=== PATIENT | male | born 1995 | race Asian ===

== ENCOUNTER 2016-10-23 01:49 | Inpatient (IN) | payer OTHER ==
[~2016-10-23] VITALS: Ht 180.3 cm; Wt 72.6 kg
[2016-10-23] MEDS ORDERED: TRIM/SULFAMETH 160/800 (SEPTRA DS) TAB PO STA (02:51)
[2016-10-23] MEDS ORDERED: LIDOCAINE 1% INJ 20 ML (XYLOCAINE) VIAL INJ STA (02:51)
--- NOTE | 2016-10-23 03:37 | ED Integumentary General ---
General Chief Complaint: Skin/Wound Problems Stated Complaint: CYST Nursing Triage Note: PT C/O INGROWN HAIR NOTICED ON SUNDAY. STATES HE THINKS HE HAS A "SEBACEOUS CYST" THAT HAS GOTTEN LARGER IN SIZE, AREA RED, PAINFUL. Source: patient Exam Limitations: no limitations History of Present Illness Time seen by provider: 02:40 Initial Comments Here with area of swelling just above the penis over the pubis area. Patient reports that he thought he had an ingrown hair and noticed some swelling in the area and tried to squeeze it to pop what he believes was a small pustule. This did not work and yesterday he started noticing rapid swelling increasing to the area and encompass the area above the penis and then towards the left groin. Does have mild fever currently. Has not had anything like this before. Otherwise healthy. Timing/Duration: getting worse, other (2 days ago) Severity: moderate Location: genitalia Possible Cause: other (shaving/ingrown hair) Associated Symptoms: edema, fever Allergies and Home Medications Allergies Coded Allergies: No Known Drug Allergies (Unverified , 10/23/16) Home Medications No Active Prescriptions or Reported Meds Constitutional: see HPI, No chills, No fever Respiratory: no symptoms reported Cardiovascular: no symptoms reported Gastrointestinal: no symptoms reported, No nausea, No vomiting Genitourinary: see HPI, No dysuria, No frequency, pain (skin wound) Musculoskeletal: no symptoms reported Skin: see HPI, change in color, lesions Psychiatric/Neurological: No Symptoms Reported All Other Systems Reviewed Negative Unless Noted: Yes Past Shggmeo-Wqtkbz-Ykwrhn Hx Patient Social History Alcohol Use: Rarely Uses Recreational Drug Use: No Smoking Status: Never a Smoker 2nd Hand Smoke Exposure: No Recent Foreign Travel: No Contact w/Someone Who Travel: No Recent Infectious Disease Expo: No Recent Hopitalizations: No Immunizations Up To Date Tetanus Booster (TDap): Unknown Seasonal Allergies Seasonal Allergies: No Surgeries HX Surgeries: No Respiratory Hx Respiratory Disorders: No Cardiovascular Hx Cardiac Disorders: No Neurological Hx Neurological Disorders: No Reproductive System Hx Reproductive Disorders: No Sexually Transmitted Disease: No Genitourinary Hx Genitourinary Disorders: No Gastrointestinal Hx Gastrointestinal Disorders: No Musculoskeletal Hx Musculoskeletal Disorders: No Endocrine Hx Endocrine Disorders: No HEENT HX ENT Disorders: No Cancer Hx Cancer: No Psychosocial Hx Psychiatric Problems: No Integumentary HX Skin/Integumentary Disorder: No Blood Transfusions Hx Blood Disorders: No Reviewed Nursing Assessment Reviewed/Agree w Nursing PMH: Yes Family Medical History Significant Family History: No Pertinent Family Hx Physical Exam Vital Signs Vital Sign - Last 12Hours 10/23/16 02:11 Temp 100.0 Pulse 75 Resp 19 B/P (MAP) 136/89 Pulse Ox 97 O2 Delivery Room Air Capillary Refill : Less Than 3 Seconds General Appearance: WD/WN, no apparent distress Neck: full range of motion, supple Cardiovascular: regular rate, rhythm, no murmur Respiratory: lungs clear, normal breath sounds Gastrointestinal: non tender, soft Skin: warm/dry Skin Problem Location: other (pubic area) Skin Problem Character: abscess, erythema, other (2 x 6 cm area of induration with an area centrally that has pustule draining purulent drainage.) Lymphatic: No inguinal node tender (R), inguinal node tender (L) I&D : Blade Size: 11 I & D Procedure: betadine prep Progress Abscessed area and pubic area midline symphysis pubis at base of penis prepped with Betadine and anesthetized with 6 mL of 1 percent lidocaine. 0.5 cm incision over area of concern made and small amount of pus obtained. Remainder of the 2 x 6 cm area is apparently all induration without purulence. Covered with antibiotic ointment and dressing. Progress/Results/Core Measures Results/Orders Lab Results Laboratory Tests Test 10/23/16 03:41 Range/Units White Blood Count 15.6 H 4.3-11.0 10^3/uL Red Blood Count 4.80 4.35-5.85 10^6/uL Hemoglobin 14.7 13.3-17.7 G/DL Hematocrit 42 40-54 % Mean Corpuscular Volume 88 80-99 FL Mean Corpuscular Hemoglobin 31 25-34 PG Mean Corpuscular Hemoglobin Concent 35 32-36 G/DL Red Cell Distribution Width 11.6 10.0-14.5 % Platelet Count 337 130-400 10^3/uL Mean Platelet Volume 8.8 7.4-10.4 FL Neutrophils (%) (Auto) 71 42-75 % Lymphocytes (%) (Auto) 19 12-44 % Monocytes (%) (Auto) 8 0-12 % Eosinophils (%) (Auto) 1 0-10 % Basophils (%) (Auto) 1 0-10 % Neutrophils # (Auto) 11.1 H 1.8-7.8 X 10^3 Lymphocytes # (Auto) 3.0 1.0-4.0 X 10^3 Monocytes # (Auto) 1.2 H 0.0-1.0 X 10^3 Eosinophils # (Auto) 0.2 0.0-0.3 10^3/uL Basophils # (Auto) 0.1 0.0-0.1 10^3/uL Sodium Level 142 135-145 MMOL/L Potassium Level 3.9 3.6-5.0 MMOL/L Chloride Level 106 98-107 MMOL/L Carbon Dioxide Level 26 21-32 MMOL/L Anion Gap 10 5-14 MMOL/L Blood Urea Nitrogen 7 7-18 MG/DL Creatinine 0.97 0.60-1.30 MG/DL Estimat Glomerular Filtration Rate > 60 BUN/Creatinine Ratio 7 Glucose Level 100 70-105 MG/DL Lactic Acid Level 0.93 0.50-2.00 MMOL/L Calcium Level 9.2 8.5-10.1 MG/DL Total Bilirubin 0.7 0.1-1.0 MG/DL Aspartate Amino Transf (AST/SGOT) 13 5-34 U/L Alanine Aminotransferase (ALT/SGPT) 13 0-55 U/L Alkaline Phosphatase 49 40-136 U/L C-Reactive Protein High Sensitivity 3.12 H 0.00-0.50 MG/DL Total Protein 6.2 L 6.4-8.2 G/DL Albumin 3.8 3.2-4.5 G/DL My Orders Orders - DARNELL JAIMES MD Lidocaine 1% Injection (Xylocaine 1% Inj (10/23/16 02:51) Wound Culture (10/23/16 02:51) Sulfamethoxazole/Trimet Ds Tab (Bactrim (10/23/16 02:51) Cbc With Automated Diff (10/23/16 03:28) Comprehensive Metabolic Panel (10/23/16 03:28) Hs C Reactive Protein (10/23/16 03:28) Blood Culture (10/23/16 03:28) Saline Lock/Iv-Start (10/23/16 03:28) Lactic Acid Analyzer (10/23/16 03:28) Ceftriaxone Injection (Rocephin Injectio (10/23/16 04:00) Ct Pelvis W (10/23/16 04:44) Ibuprofen Tablet (Motrin Tablet) (10/23/16 04:44) Ns Iv 1000 Ml (Sodium Chloride 0.9%) (10/23/16 04:44) Vancomycin Injection (Vancomycin Injecti (10/23/16 04:45) Medications Given in ED Current Medications Medications Dose Ordered Sig/Amador Route Start Time Stop Time Status Last Admin Dose Admin Ceftriaxone Sodium 1000 mg/ Sodium Chloride 50 ml @ 100 mls/hr ONCE ONCE IV 10/23/16 04:00 10/23/16 04:29 DC 10/23/16 04:01 100 MLS/HR Vital Signs/I&O Vital Sign - Last 12Hours 10/23/16 02:11 Temp 100.0 Pulse 75 Resp 19 B/P (MAP) 136/89 Pulse Ox 97 O2 Delivery Room Air Blood Pressure Mean: 105 Progress Note : Progress Note Seen and evaluated. I&D attempted. Culture obtained. Considered Bactrim by mouth but held due to patient appears to have some thickening of induration so IV and labs will be obtained to evaluate for systemic effects. Blood cultures and lactic acid ordered. Rocephin 1 g IV after blood cultures. Patient does have mild fever. 0439: I did discuss the case with Dr. Jimenez. Patient does have elevated white count and there is concerns due to the quick expansion of area of concern. He would like CT of the pelvis which was ordered. We will initiate vancomycin afterwards. Normal saline 1 L bolus. Patient's temperature is now 100.2. Ibuprofen 800 mg by mouth given. To be admitted. Dr. Jimenez is requesting medicine consult which will be placed. He will take patient primary. Admit, inpatient status. Departure Communication Time/Spoke to Admitting Phy: 04:39 Impression Impression: Primary Impression: Groin abscess Additional Impression: Cellulitis Qualified Codes: L03.818 - Cellulitis of other sites Disposition: ADMITTED INPATIENT Condition: Stable Decision to Admit Reason: Admit from ER (General) Decision to Admit/Date: October 23, 2016 Time/Decision to Admit Time: 04:39 Departure-Patient Inst. Referrals: NO,LOCAL PHYSICIAN (PCP/Family) Primary Care Physician Scripts No Active Prescriptions or Reported Meds DARNELL JAIMES MD October 23, 2016 03:37
[2016-10-23 04:00] LABS: BASOPHILS # (AUTO) 0.1 10^3/uL (0.0-0.1); BASOPHILS % (AUTO) 1 % (0-10); EOSINOPHILS # (AUTO) 0.2 10^3/uL (0.0-0.3); EOSINOPHILS % (AUTO) 1 % (0-10); LYMPHOCYTES % (AUTO) 19 % (12-44); MEAN CORPUSCULAR HEMOGLOBIN 31 PG (25-34); MEAN CORPUSCULAR HGB CONC 35 G/DL (32-36); MEAN CORPUSCULAR VOLUME 88 FL (80-99); MEAN PLATELET VOLUME 8.8 FL (7.4-10.4); MONOCYTES # (AUTO) 1.2 X 10^3 (0.0-1.0); MONOCYTES % (AUTO) 8 % (0-12); NEUTROPHILS # (AUTO) 11.1 X 10^3 (1.8-7.8); NEUTROPHILS % (AUTO) 71 % (42-75); PLATELET COUNT 337 10^3/uL (130-400); RED CELL DISTRIBUTION WIDTH 11.6 % (10.0-14.5); WHITE BLOOD COUNT 15.6 10^3/uL (4.3-11.0)
[2016-10-23] MEDS ORDERED: cefTRIAXone INJECTION 1,000 MG in NS (IVPB) 50 ML IV ONE (04:00)
[2016-10-23 04:20] LABS: ALANINE AMINOTRANSFERASE 13 U/L (0-55); ALBUMIN 3.8 G/DL (3.2-4.5); ANION GAP 10 MMOL/L (5-14); ASPARTATE AMINO TRANSFERASE 13 U/L (5-34); BILIRUBIN,TOTAL 0.7 MG/DL (0.1-1.0); BLOOD UREA NITROGEN 7 MG/DL (7-18); BUN/CREATININE RATIO 7; CALCIUM 9.2 MG/DL (8.5-10.1); CARBON DIOXIDE 26 MMOL/L (21-32); CHLORIDE 106 MMOL/L (98-107); CREATININE SERUM 0.97 MG/DL (0.60-1.30); GFR ESTIMATED > 60; GLUCOSE 100 MG/DL (70-105); POTASSIUM 3.9 MMOL/L (3.6-5.0); SODIUM 142 MMOL/L (135-145); TOTAL PROTEIN 6.2 G/DL (6.4-8.2); hs C REACTIVE PROTEIN 3.12 MG/DL (0.00-0.50)
[2016-10-23] MEDS ORDERED: NS IV 1000 ML 1,000 ML IV ONE (04:44)
[2016-10-23] MEDS ORDERED: IBUPROFEN 800 MG (MOTRIN) TAB PO STA (04:44)
[2016-10-23] MEDS ORDERED: VANCOMYCIN INJECTION 1,000 MG in NS (IVPB) 250 ML IV ONE (04:45)
[2016-10-23] MEDS ORDERED: CATHETER FLUSH 10 ML SYR IV PRN (07:30)
[2016-10-23] MEDS ORDERED: ONDANSETRON 4 MG/2 ML (SDV) Z0FRAN IV PRN (07:45)
--- NOTE | 2016-10-23 08:07 | Diagnostic Imaging Report ---
PROCEDURE: CT pelvis with contrast. TECHNIQUE: Oral and intravenous contrast were administered with pelvic CT performed. INDICATION: Cyst in the left groin, testicular region. FINDINGS: Small curvilinear, somewhat thickwalled rim-enhancing areas noted within the superficial subcutaneous fat of left superior lateral base of the penis. Some rim enhancement is noted may reflective of abscess. This appears to be likely just anterior to and separate from the left spermatic cord. This area measures approximately 4 cm in length by 1 cm in diameter. There is additional [id number] surrounding superficial subcutaneous fat stranding. Mildly prominent bilateral inguinal lymph nodes. The intraperitoneal structures including urinary bladder and prostate gland appearing unremarkable. Portion of the appendix are visualized and unremarkable. IMPRESSION: 1. Findings suspect for probable abscess within the superficial subcutaneous fat at the superolateral base of the penis to left of midline. Inflammatory changes extends inferiorly along the scrotal wall. Dictated by: Dictated on workstation # [id number]
[2016-10-23] MEDS: NS IV 1000 ML 1,000 ML IV SCH ×3 (08:27→17:58)
--- NOTE | 2016-10-23 09:07 | Consultation-Hospitalist ---
HPI History of Present Illness: HPI/Chief Complaint 21 yo male began having a folliculitis after shaving around his groin approximately 4 -5 days ago. It has progressed to an area of painful swelling and induration on the left side at the base of the penis. He has an elevated WBC and fever- this was attempted to be I and D'ed in the ER . Pt is admitted for further IV antibiotics and possible surgical exploration. He denies having any other medical problems or needs at this time. Source: patient Exam Limitations: no limitations Date Seen 10/23/16 Attending Physician Jc Jimenez DO PCP No,Local Physician Referring Physician Barbara Date of Admission October 23, 2016 at 5:30 am Home Medications & Allergies Home Medications Reviewed patient Home Medication Reconciliation Form Allergies Allergies Coded Allergies No Known Drug Allergies (Unverified10/23/16) Past Unmzxqf-Gwrhum-Fphctg Hx Patient Social History Marrital Status: single Employed/Student: unemployed Alcohol Use: Rarely Uses Recreational Drug Use: No Smoking Status: Never a Smoker 2nd Hand Smoke Exposure: No Recent Foreign Travel: No Contact w/other who traveled: No Recent Hopitalizations: No Recent Infectious Disease Expo: No Immunizations Up To Date Tetanus Booster (TDap): Unknown Seasonal Allergies Seasonal Allergies: No Surgeries HX Surgeries: No Respiratory Hx Respiratory Disorders: No Cardiovascular Hx Cardiovascular Disorders: No Neurological Hx Neurological Disorders: No Reproductive System Hx Reproductive Disorders: No Sexually Transmitted Disease: No Genitourinary Hx Genitourinary Disorders: No Gastrointestinal Hx Gastrointestinal Disorders: No Musculoskeletal Hx Musculoskeletal Disorders: No Endocrine Hx Endocrine Disorders: No HEENT HX ENT Disorders: No Cancer Hx Cancer: No Psychosocial Hx Psychiatric Problems: No Integumentary HX Skin/Integumentary Disorder: No Blood Transfusions Hx Blood Disorders: No Reviewed Nursing Assessment Reviewed/Agree w Nursing PMH: Yes Family Medical History Significant Family History: No Pertinent Family Hx Review of Systems Constitutional: see HPI Genitourinary: pain Physical Exam Physical Exam Vital Signs Vital Sign - Last 12Hours 10/23/16 02:11 Temp 100.0 Pulse 75 Resp 19 B/P (MAP) 136/89 Pulse Ox 97 O2 Delivery Room Air Capillary Refill : Less Than 3 Seconds General Appearance: No Apparent Distress, WD/WN HEENT: Normal ENT Inspection Neck: Normal Inspection, Non Tender, Supple Respiratory: Lungs Clear, Normal Breath Sounds, No Accessory Muscle Use, No Respiratory Distress Cardiovascular: Regular Rate, Rhythm, No Gallop, No Murmur Gastrointestinal: No Organomegaly, Non Tender, Soft Rectal: Deferred Genital/Rectal: Tenderness, Other (2-3 cm indurated lesion at base of penis on left side) Results Results/Procedures Lab Laboratory Tests 10/23/16 03:41 Assessment/Plan Admission Diagnosis 1. Abscess secondary to folliculitis- Strep or staph most likely organism- started on Vanc and Rocephin- no further problems at this time - will follow with you LISETTE BAUMAN MD October 23, 2016 9:07 am
--- NOTE | 2016-10-23 09:47 | History & Physical-Surgical ---
History of Present Illness History of Present Illness Reason for visit/HPI Patient reports that about 3 days ago, he noticed a cyst to his pubic area, above his penis.Patient has reportedly shaved his pubic hair a few days prior to noticing the cyst. Patient reports that he tried to pop it but there was no drainage. Patient states that over the next 2 days, that became red, inflamed and started hurting. He also reports that the redness going into his left groin. Patient states that it was getting worse and he decided to come to the ER. The ED physician tried to I&D the cyst but with minimal result. Patient was admitted for Antibiotics and further evaluation. Date of Admission October 23, 2016 at 05:30 I consulted on this patient on 10/23/16 09:41 Attending Physician Winnie Jimenez DO Admitting Physician No,Local Physician Consult Allergies and Home Medications Allergies Coded Allergies: No Known Drug Allergies (Unverified , 10/23/16) Home Medications No Active Prescriptions or Reported Meds Past Qcdjlrj-Lkfzyg-Lklfeq Hx Patient Social History Alcohol Use: Rarely Uses Recreational Drug Use: No Smoking Status: Never a Smoker 2nd Hand Smoke Exposure: No Recent Foreign Travel: No Contact w/Someone Who Travel: No Recent Infectious Disease Expo: No Recent Hopitalizations: No Immunizations Up To Date Tetanus Booster (TDap): Unknown Seasonal Allergies Seasonal Allergies: No Surgeries HX Surgeries: No Respiratory Hx Respiratory Disorders: No Cardiovascular Hx Cardiac Disorders: No Neurological Hx Neurological Disorders: No Reproductive System Hx Reproductive Disorders: No Sexually Transmitted Disease: No Genitourinary Hx Genitourinary Disorders: No Gastrointestinal Hx Gastrointestinal Disorders: No Musculoskeletal Hx Musculoskeletal Disorders: No Endocrine Hx Endocrine Disorders: No HEENT HX ENT Disorders: No Cancer Hx Cancer: No Psychosocial Hx Psychiatric Problems: No Integumentary HX Skin/Integumentary Disorder: No Blood Transfusions Hx Blood Disorders: No Reviewed Nursing Assessment Reviewed/Agree w Nursing PMH: Yes Family Medical History Significant Family History: No Pertinent Family Hx Constitutional: fever (Low grade fever 100.2 ) EENTM: no symptoms reported Respiratory: no symptoms reported Cardiovascular: no symptoms reported Gastrointestinal: no symptoms reported Genitourinary: see HPI Musculoskeletal: no symptoms reported Skin: change in color, other (redness to the pubic area above his penis. ) Physical Exam Vital Signs Vital Sign - Last 12Hours 10/23/16 02:11 Temp 100.0 Pulse 75 Resp 19 B/P (MAP) 136/89 Pulse Ox 97 O2 Delivery Room Air Capillary Refill : Less Than 3 Seconds General Appearance: No Apparent Distress, WD/WN HEENT: PERRL/EOMI Neck: Full Range of Motion Respiratory: Chest Non Tender, No Accessory Muscle Use, No Respiratory Distress Cardiovascular: Regular Rate, Rhythm Gastrointestinal: Non Tender, Soft Genital/Rectal: Tenderness (pubic area above the penis. Noted redness that extends to his left groin with induration. ) Extremity: Non Tender, No Calf Tenderness Neurologic/Psychiatric: Alert, Oriented x3, No Motor/Sensory Deficits Skin: Normal Color, Other (Redness noted to rhe pubic area with induration. No drainage noted at this time from l&D) Data Review Labs Laboratory Tests 10/23/16 03:41: White Blood Count 15.6H, Red Blood Count 4.80, Hemoglobin 14.7, Hematocrit 42, Mean Corpuscular Volume 88, Mean Corpuscular Hemoglobin 31, Mean Corpuscular Hemoglobin Concent 35, Red Cell Distribution Width 11.6, Platelet Count 337, Mean Platelet Volume 8.8, Neutrophils (%) (Auto) 71, Lymphocytes (%) (Auto) 19, Monocytes (%) (Auto) 8, Eosinophils (%) (Auto) 1, Basophils (%) (Auto) 1, Neutrophils # (Auto) 11.1H, Lymphocytes # (Auto) 3.0, Monocytes # (Auto) 1.2H, Eosinophils # (Auto) 0.2, Basophils # (Auto) 0.1, Sodium Level 142, Potassium Level 3.9, Chloride Level 106, Carbon Dioxide Level 26, Anion Gap 10, Blood Urea Nitrogen 7, Creatinine 0.97, Estimat Glomerular Filtration Rate > 60, BUN/ Creatinine Ratio 7, Glucose Level 100, Lactic Acid Level 0.93, Calcium Level 9.2 , Total Bilirubin 0.7, Aspartate Amino Transf (AST/SGOT) 13, Alanine Aminotransferase (ALT/SGPT) 13, Alkaline Phosphatase 49, C-Reactive Protein High Sensitivity 3.12H, Total Protein 6.2L, Albumin 3.8 Microbiology 10/23/16 Gram Stain - Final, Resulted 10/23/16 Wound Culture - Preliminary, Resulted Staphylococcus Aureus Assessment/Plan Assessment/Plan Assessment/Plan Abscess secondary to folliculitis- Cellulitis Patient is currently on vancomycin and Rocephin. We will continue to evaluate and monitor the patient. Barbara- Patient 3-4 days of swelling at base of penis and left side scrotum. Had I and D in ED with small amount of purulent material. Has had fever and discomfort to the area. Patient had CT scan demonstrating changes of abscess and b/l reactive lymph nodes. Patient with wbc approximately 15 K Patient states he recently clipped the area. Denies risks for std's. General no acute distress heart s1s2 lungs clear abdomen soft genitalia- base of penis and towards left scrotum erythema and swelling small opening from previous i and d. there feels to be slight fluctuance more towards scrotum portion. tender to touch. some purulent material evacuated from previous incision. normal mood affect alert and oriented abscess base of penis and left side scrotum cellulitis discussed still areas of fluctuance and would benefit from i and d also reviewed and discussed CT findings patient understands risk and benefits of further incision and drainage and wishes to proceed. continue abx wound care irrigate and pack c iodoform gauze all questions answered. consent signed for procedure. JESSEE JESUS APRN October 23, 2016 09:47 WINNIE JIMENEZ DO October 23, 2016 17:33
[2016-10-23] MEDS ORDERED: LIDOCAINE 1% INJ 20 ML (XYLOCAINE) VIAL ONE (10:18)
[2016-10-23] MEDS: fentaNYL INJECTION 100 MCG/2 ML AMP IV PRN (11:41)
[2016-10-23 12:00] VITALS: BP 113/61
[2016-10-23] MEDS: KETOROLAC 30 MG/ML VIAL IV PRN (12:45)
[2016-10-23] MEDS: VANCOMYCIN 1 GM/NS 250 ML IVPB IV SCH ×4 (14:02→21:09)
[2016-10-23] MEDS ORDERED: ACETAMINOPHEN 500 MG TAB (TYLENOL) PO PRN (18:15)
[2016-10-23] MEDS: ACETAMINOPHEN 325 MG TABLET/CAPLET (TYLENOL) PO PRN (18:44)
[2016-10-24 00:21] VITALS: BP 120/65
[2016-10-24] MEDS: NS IV 1000 ML 1,000 ML IV SCH ×2 (03:11→13:46)
[2016-10-24] MEDS: ACETAMINOPHEN 325 MG TABLET/CAPLET (TYLENOL) PO PRN (03:11)
[2016-10-24 04:00] VITALS: BP 120/60
--- NOTE | 2016-10-24 04:59 | OPERATIVE REPORT ---
DATE OF SERVICE: 10/23/2016 PREOPERATIVE DIAGNOSIS: Abscess, base of the penis and left scrotum. POSTOPERATIVE DIAGNOSIS: Abscess, base of the penis and left scrotum. PROCEDURES: Incision and drainage of abscess, base of penis, on the left side of the scrotum. SURGEON: Winnie Jimenez MD ANESTHESIA: 3 mL of 1% lidocaine. ESTIMATED BLOOD LOSS: Minimal. COMPLICATIONS: None. INDICATIONS: The patient is a 21-year-old male with an abscess to the base of his penis and life side of the scrotum. He had previous incision and drainage with a small opening, but still has further fluctuance and felt to need further incision and drainage. He understands the risks and benefits of procedures and wished to proceed with procedure. Consent was signed and in the chart. PROCEDURE: The patient was prepped and draped in sterile fashion. Timeout was performed. Local anesthetic was infiltrated into the area. Using 11 blade scalpel the incision was made over the area of fluctuance. Purulent material erupted in a small amount. There is still a lot of indurated area present. The wound was then irrigated with copious amounts of irrigation. It was then packed with 0.25 inch iodoform gauze. The area was then washed and dried, sterile bandage was applied. The patient tolerated the procedure well without any complications. After incision was made, culture was obtained. The patient was instructed that he may need further incision if it continues to worsen or even further debridement. He understands. The patient continue on antibiotics. Job ID: [id number] DocumentID: [id number] Dictated Date: 10/23/2016 17:34:39 Roll Out Manager Date: 10/24/2016 04:58:16 Dictated By: WINNIE JIMENEZ DO
[2016-10-24] MEDS ORDERED: TROUGH ORDER-PHARMACY XX SCH (05:00)
[2016-10-24 05:29] LABS: BASOPHILS # (AUTO) 0.1 10^3/uL (0.0-0.1); BASOPHILS % (AUTO) 0 % (0-10); EOSINOPHILS # (AUTO) 0.4 10^3/uL (0.0-0.3); EOSINOPHILS % (AUTO) 2 % (0-10); LYMPHOCYTES # (AUTO) 2.7 X 10^3 (1.0-4.0); LYMPHOCYTES % (AUTO) 17 % (12-44); MEAN CORPUSCULAR HEMOGLOBIN 30 PG (25-34); MEAN CORPUSCULAR HGB CONC 34 G/DL (32-36); MEAN CORPUSCULAR VOLUME 89 FL (80-99); MONOCYTES # (AUTO) 1.2 X 10^3 (0.0-1.0); MONOCYTES % (AUTO) 8 % (0-12); NEUTROPHILS # (AUTO) 11.1 X 10^3 (1.8-7.8); NEUTROPHILS % (AUTO) 72 % (42-75); PLATELET COUNT 266 10^3/uL (130-400); RED BLOOD COUNT 4.25 10^6/uL (4.35-5.85); RED CELL DISTRIBUTION WIDTH 11.5 % (10.0-14.5); WHITE BLOOD COUNT 15.4 10^3/uL (4.3-11.0)
[2016-10-24 05:58] LABS: ALANINE AMINOTRANSFERASE 11 U/L (0-55); ALBUMIN 3.1 G/DL (3.2-4.5); ANION GAP 7 MMOL/L (5-14); ASPARTATE AMINO TRANSFERASE 11 U/L (5-34); BILIRUBIN,TOTAL 0.4 MG/DL (0.1-1.0); BLOOD UREA NITROGEN 9 MG/DL (7-18); BUN/CREATININE RATIO 11; CALCIUM 8.3 MG/DL (8.5-10.1); CARBON DIOXIDE 22 MMOL/L (21-32); CHLORIDE 109 MMOL/L (98-107); CREATININE SERUM 0.81 MG/DL (0.60-1.30); GFR ESTIMATED > 60; GLUCOSE 103 MG/DL (70-105); SODIUM 138 MMOL/L (135-145); TOTAL PROTEIN 5.1 G/DL (6.4-8.2)
[2016-10-24] MEDS: VANCOMYCIN 1 GM/NS 250 ML IVPB IV SCH ×2 (06:26)
[2016-10-24 08:00] VITALS: BP 129/67
[2016-10-24] MEDS ORDERED: VANCOMYCIN 500 MG/NS 100 ML IVPB IV NR ×2 (08:29)
[2016-10-24] MEDS ORDERED: cefTRIAXone 1 GM/NS 50 ML IVPB IV SCH ×2 (09:00)
[2016-10-24] MEDS: fentaNYL INJECTION 100 MCG/2 ML AMP IV PRN (09:26)
--- NOTE | 2016-10-24 10:33 | Progress Note ---
Subjective Subjective/Events-last exam Patient resting in bed. Alert and oriented. Patient still has area of induration superior to his penis. Redness and swelling noted to penis and scrotum. Objective Exam Vital Signs Date Time Temp Pulse Resp B/P (MAP) Pulse Ox O2 Delivery O2 Flow Rate FiO2 10/24/16 08:00 97.7 70 20 129/67 97 Room Air 10/24/16 04:00 98.2 69 16 120/60 96 Room Air 10/24/16 00:21 99.0 66 16 120/65 99 Room Air 10/23/16 18:44 99.7 10/23/16 12:00 98.2 52 20 113/61 98 Room Air I & O 10/24/16 07:00 Intake Total 3760 ml Balance 3760 ml Capillary Refill : Less Than 3 Seconds General Appearance: No Apparent Distress, WD/WN HEENT: PERRL/EOMI Neck: Full Range of Motion Respiratory: Chest Non Tender, No Accessory Muscle Use, No Respiratory Distress Cardiovascular: Regular Rate, Rhythm Gastrointestinal: non tender, soft Extremity: Non Tender, No Calf Tenderness Neurologic/Psychiatric: Alert, Oriented x3, No Motor/Sensory Deficits Skin: Normal Color, Other (Redness noted to the pubic area with induration. yellow puslike drainage from I&D done by Dr. Jimenez. ) Results Lab Laboratory Tests 10/24/16 05:20: White Blood Count 15.4H, Red Blood Count 4.25L, Hemoglobin 12.9L, Hematocrit 38L , Mean Corpuscular Volume 89, Mean Corpuscular Hemoglobin 30, Mean Corpuscular Hemoglobin Concent 34, Red Cell Distribution Width 11.5, Platelet Count 266, Mean Platelet Volume 9.0, Neutrophils (%) (Auto) 72, Lymphocytes (%) (Auto) 17, Monocytes (%) (Auto) 8, Eosinophils (%) (Auto) 2, Basophils (%) (Auto) 0, Neutrophils # (Auto) 11.1H, Lymphocytes # (Auto) 2.7, Monocytes # (Auto) 1.2H, Eosinophils # (Auto) 0.4H, Basophils # (Auto) 0.1, Sodium Level 138, Potassium Level 4.0, Chloride Level 109H, Carbon Dioxide Level 22, Anion Gap 7, Blood Urea Nitrogen 9, Creatinine 0.81, Estimat Glomerular Filtration Rate > 60, BUN/ Creatinine Ratio 11, Glucose Level 103, Calcium Level 8.3L, Total Bilirubin 0.4 , Aspartate Amino Transf (AST/SGOT) 11, Alanine Aminotransferase (ALT/SGPT) 11, Alkaline Phosphatase 46, Total Protein 5.1L, Albumin 3.1L, Vancomycin Level Trough 7.8L Microbiology 10/23/16 Gram Stain - Final, Resulted 10/23/16 Wound Culture - Preliminary, Resulted Staphylococcus Aureus Assessment/Plan Assessment/Plan Assessment/Plan SP I&D to Pubic area. Abscess secondary to folliculitis- Cellulitis Patient is currently on vancomycin and Rocephin. Drainage for I &D positive for MRSA. WBC is still elevated. NPO at midnight. Possible I&D in OR tomorrow if induration is not better. Daily packing and dressing of wound. Barbara- Patient penis and scrotum unchanged. Slight purulent drainage. Packing removed, irrigated and packed. Patient wbc still elevated. In no acute disterss, heart reg lungs nonlabored, Indurated area still present at base of penis and scrotum, slight purulent material present. Culture MRSA. s/p i and d will make NPO after midnight incase needs further I and D and debridement. Continue ABX Warm compresses. Assessment as above Clinical Quality Measures DVT/VTE Risk/Contraindication: Risk Factor Score Per Nursin RFS Level Per Nursing on Admit: 1=Low/No VTE PPX JESSEE JESUS DEVELOPMENT ENGINEER October 24, 2016 10:33 WINNIE JIMENEZ DO October 24, 2016 15:43
[2016-10-24 12:30] VITALS: BP 127/63
[2016-10-24] MEDS: VANCOMYCIN INJECTION 1,500 MG in NS IV 500 ML 500 ML IV SCH ×2 (13:46→21:27)
[2016-10-24 16:00] VITALS: BP 119/73
[2016-10-24 20:00] VITALS: BP 124/79
[2016-10-25] VITALS: BP 138/63
[2016-10-25] MEDS: NS IV 1000 ML 1,000 ML IV SCH ×3 (02:04→16:57)
[2016-10-25] MEDS ORDERED: TROUGH ORDER-PHARMACY XX NR (05:00)
[2016-10-25] MEDS: VANCOMYCIN INJECTION 1,500 MG in NS IV 500 ML 500 ML IV SCH ×3 (06:44→21:58)
[2016-10-25 07:43] LABS: BASOPHILS # (AUTO) 0.1 10^3/uL (0.0-0.1); BASOPHILS % (AUTO) 0 % (0-10); EOSINOPHILS # (AUTO) 0.3 10^3/uL (0.0-0.3); EOSINOPHILS % (AUTO) 3 % (0-10); LYMPHOCYTES # (AUTO) 3.2 X 10^3 (1.0-4.0); LYMPHOCYTES % (AUTO) 29 % (12-44); MEAN CORPUSCULAR HEMOGLOBIN 30 PG (25-34); MEAN CORPUSCULAR HGB CONC 34 G/DL (32-36); MEAN CORPUSCULAR VOLUME 89 FL (80-99); MEAN PLATELET VOLUME 9.3 FL (7.4-10.4); MONOCYTES # (AUTO) 0.8 X 10^3 (0.0-1.0); MONOCYTES % (AUTO) 7 % (0-12); NEUTROPHILS # (AUTO) 6.7 X 10^3 (1.8-7.8); NEUTROPHILS % (AUTO) 60 % (42-75); PLATELET COUNT 289 10^3/uL (130-400); RED BLOOD COUNT 4.11 10^6/uL (4.35-5.85); RED CELL DISTRIBUTION WIDTH 11.3 % (10.0-14.5); WHITE BLOOD COUNT 11.2 10^3/uL (4.3-11.0)
[2016-10-25] MEDS ORDERED: LACTATED RINGERS 1,000 ML IV PRN (07:55)
[2016-10-25 08:00] VITALS: BP 112/64
--- NOTE | 2016-10-25 08:14 | Progress Note ---
Subjective Subjective/Events-last exam States about the same. No new complaints. Denies n/v fever sweats chills shortness of breath or chest pain. Objective Exam Vital Signs Date Time Temp Pulse Resp B/P (MAP) Pulse Ox O2 Delivery O2 Flow Rate FiO2 10/25/16 00:00 99.2 59 18 138/63 99 Room Air 10/24/16 20:00 97.4 63 18 124/79 97 Room Air 10/24/16 16:00 97.6 59 20 119/73 98 Room Air 10/24/16 12:30 98.4 58 16 127/63 99 Room Air I & O 10/25/16 07:00 Intake Total 6040 ml Output Total 4350 ml Balance 1690 ml Capillary Refill : Less Than 3 Seconds General Appearance: No Apparent Distress, WD/WN HEENT: PERRL/EOMI Neck: Full Range of Motion Respiratory: Chest Non Tender, No Accessory Muscle Use, No Respiratory Distress Cardiovascular: Regular Rate, Rhythm Gastrointestinal: non tender, soft Extremity: Non Tender, No Calf Tenderness Neurologic/Psychiatric: Alert, Oriented x3, No Motor/Sensory Deficits Skin: Normal Color, Other (Redness noted to the pubic area with less induration now more fluctuance. yellow puslike drainage ) Results Lab Laboratory Tests 10/25/16 05:48: White Blood Count 11.2H, Red Blood Count 4.11L, Hemoglobin 12.4L, Hematocrit 37L , Mean Corpuscular Volume 89, Mean Corpuscular Hemoglobin 30, Mean Corpuscular Hemoglobin Concent 34, Red Cell Distribution Width 11.3, Platelet Count 289, Mean Platelet Volume 9.3, Neutrophils (%) (Auto) 60, Lymphocytes (%) (Auto) 29, Monocytes (%) (Auto) 7, Eosinophils (%) (Auto) 3, Basophils (%) (Auto) 0, Neutrophils # (Auto) 6.7, Lymphocytes # (Auto) 3.2, Monocytes # (Auto) 0.8, Eosinophils # (Auto) 0.3, Basophils # (Auto) 0.1, Vancomycin Level Trough 15.0 Microbiology 10/23/16 Blood Culture - Preliminary, Resulted No growth 10/23/16 Gram Stain - Final, Resulted 10/23/16 Wound Culture - Preliminary, Resulted Staphylococcus Aureus Assessment/Plan Assessment/Plan Assessment/Plan SP I&D to Pubic area. Abscess secondary to folliculitis- Cellulitis MRSA Patient with more fluctuant area discussed need for further i and d possible debridement he understands he's npo WBC slightly decreased to or for further intervention. Clinical Quality Measures DVT/VTE Risk/Contraindication: Risk Factor Score Per Nursin RFS Level Per Nursing on Admit: 1=Low/No VTE PPX WINNIE FLAHERTY DO October 25, 2016 08:14
[2016-10-25] MEDS ORDERED: SEVOFLURANE (ULTANE) 15 ML INHAL SOLN ONE ×2 (08:25→09:16)
[2016-10-25] MEDS ORDERED: proPOfol 200 MG/20 ML (DIPRIVAN) VIAL IV ONE ×2 (08:25→09:10)
[2016-10-25] MEDS ORDERED: MIDAZOLAM 2 MG/2 ML (VERSED) VIAL ONE (08:25)
[2016-10-25] MEDS ORDERED: LACTATED RINGERS 1,000 ML IV ONE (08:25)
[2016-10-25] MEDS ORDERED: LIDOCAINE PF 2% 10 ML (XYLOCAINE) AMP ONE (08:25)
[2016-10-25] MEDS ORDERED: fentaNYL INJECTION 100 MCG/2 ML AMP ONE ×2 (08:25→09:09)
[2016-10-25] MEDS ORDERED: ONDANSETRON 4 MG/2 ML (SDV) Z0FRAN ONE (08:30)
[2016-10-25] MEDS ORDERED: morphine INJ 10 MG/ML 1ML (SYR OR VIAL) ONE (09:27)
--- NOTE | 2016-10-25 09:48 | Progress Note-Post Operative ---
Post-Operative Progess Note Surgeon (s)/Caramel Maker (s) Surgeon WINNIE FLAHERTY DO Caramel Maker: na Pre-Operative Diagnosis penile and scrotal abscess Post-Operative Diagnosis same Procedure & Operative Findings Date of Procedure 10/25/16 Procedure Preformed/Findings incision and drainage debridement 4.5c2x2.5cm penile/scrotum abscess Anesthesia Type general Estimated Blood Loss Estimated blood loss (mL): minimal Specimens/Packing Specimens Removed none Packing: iodoform gauze WINNIE FLAHERTY DO October 25, 2016 9:48 am
[2016-10-25] MEDS: HYDROcodone/APAP 5 MG/325 MG (LORTAB) TAB PO PRN ×2 (11:14→15:36)
[2016-10-25 16:00] VITALS: BP 123/77
[2016-10-25 19:49] VITALS: BP 131/63
[2016-10-25] MEDS: ACETAMINOPHEN 325 MG TABLET/CAPLET (TYLENOL) PO PRN (20:53)
[2016-10-26 00:21] VITALS: BP 106/62
[2016-10-26] MEDS: NS IV 1000 ML 1,000 ML IV SCH ×2 (03:09→08:32)
[2016-10-26 04:08] VITALS: BP 120/74
[2016-10-26] MEDS: VANCOMYCIN INJECTION 1,500 MG in NS IV 500 ML 500 ML IV SCH (05:40)
--- NOTE | 2016-10-26 06:53 | OPERATIVE REPORT ---
DATE OF SERVICE: 10/25/2016 PREOPERATIVE DIAGNOSIS: Penile scrotal abscess. PREOPERATIVE DIAGNOSIS: Penile scrotal abscess. PROCEDURE: Incision and drainage and debridement of penile scrotum abscess 4.5 x 2 x 2.5 cm. SURGEON: Winnie Jimenez MD ANESTHESIA: General. ESTIMATED BLOOD LOSS: Minimal. COMPLICATIONS: None. INDICATIONS: The patient is a 21-year-old male with MRSA penile scrotal abscess. More fluctuance has occurred to the wound that had already been previously incised and drained. It is on the area due to this turning into abscess. The patient was explained risks and benefits of the procedure and wished to proceed with procedure. Consent was signed and in the chart. PROCEDURE: The patient was taken to the operating suite. She was prepped and draped in sterile fashion. Surgical pause was performed. Previous incision was further opened. There was some necrotic tissue present within the wound of the subcutaneous tissue. The skin was then opened further down the scrotum over the area of fluctuance. More purulent material was erupted. The incision was extended towards the medial aspect of the wound as well towards the area of fluctuance in this area, which purulent material was erupted as well. The subcutaneous tissue and skin was opened in a total length of 4.5 cm. Using cautery and sharp dissection, the wound was debrided of necrotic tissue. All the purulent material was evacuated within the wound. Overall size was 4.5 x 2 x 2.5 cm. Copious amount of irrigation was used to irrigate the wound. The wound was then packed with 4-inch iodoform. The area was washed and dried, sterile bandage was applied. The patient tolerated procedure well without any complications. He was taken to recovery room in stable condition. Job ID: [id number] DocumentID: [id number] Dictated Date: 10/25/2016 14:29:05 Cardiographer Date: 10/26/2016 05:16:31 Dictated By: WINNIE JIMENEZ DO
[2016-10-26 08:28] VITALS: BP 112/70
[2016-10-26 08:32] LABS: RED BLOOD COUNT 4.14 10^6/uL (4.35-5.85); RED CELL DISTRIBUTION WIDTH 11.4 % (10.0-14.5); WHITE BLOOD COUNT 7.8 10^3/uL (4.3-11.0)
[2016-10-26] MEDS: KETOROLAC 30 MG/ML VIAL IV PRN (08:56)
--- NOTE | 2016-10-26 13:04 | Discharge Inst-Simple/Standard ---
Discharge Inst-Standard Discharge Medications New, Converted or Re-Newed RX: RX on Chart Patient Instructions/Follow Up Plan of Care/Instructions/FU: Keep wound clean and dry. Daily dressing changes with iodoform and bandage. Follow up with Dr. Jimenez in one week. Take medication as directed. Activity as Tolerated: No Discharge Diet: No Restrictions Other Inst to Patient Follow up Appt: Make appointment for 1 week. Instructions: No lifting greater than 10 pounds. No strenuous activity. May shower in 24 hours, no tub bath or soaking. Use incentive spirometer at home as directed. No Smoking Skin/Wound Care: Daily dressing changes. Pack wound with iodoform daily and dress. Symptoms to Report: Appetite Changes, Extremity Discoloration, Numbness/Tingling, Swelling Increased , Bleeding Excessive, Eyesight Changes, Pain Increased, Urine Color Change, Constipation(Persistent), Fever over 101 degree F, Pain/Pressure in chest, Urinating Difficulty, Cough Up/Vomit Blood, Heart Beat Irreg/Pounding, Pain/ Pressure in jaw, Vaginal Bleeding Increase, Cramps in feet or legs, Lightheadedness, Pain/Pressure in shoulder, Diarrhea(Persistent), Memory Changes Suddenly, Questions/Concerns, Weight gain consecutive days, Dizziness/ Fainting, Nausea/Vomiting, Shortness of Breath, Weight gain over 2 pounds If questions or concerns contact your physician Or seek help at emergency department. JESSEE JESUS APRN October 26, 2016 13:04
[2016-10-26] MEDS ORDERED: SULF1TAB35 PO (13:11)
[2016-10-26] MEDS ORDERED: DOCU-143 PO (13:11)
[2016-10-26] MEDS ORDERED: HYDR-3812 PO (13:11)
--- NOTE | 2016-10-26 13:21 | Anesthesia-General Post-Op ---
General Patient Condition Mental Status/LOC: Same as Preop Cardiovascular: Satisfactory Nausea/Vomiting: Absent Respiratory: Satisfactory Pain: Controlled Complications: Absent Post Op Complications Complications None Follow Up Care/Instructions Patient Instructions None needed. Anesthesia/Patient Condition Patient Condition Patient is doing well, no complaints, stable vital signs, no apparent adverse anesthesia problems. No complications reported per nursing. DELFINA ROCHA CRNA October 26, 2016 13:21
--- NOTE | 2016-10-26 16:13 | Progress Note ---
Subjective Subjective/Events-last exam Patient feeling better. WBC down. Pain controlled. Denies n/v fever sweats chills shortness of breath or chest pain. Objective Exam Vital Signs Date Time Temp Pulse Resp B/P (MAP) Pulse Ox O2 Delivery O2 Flow Rate FiO2 10/26/16 08:28 98.0 55 18 112/70 97 Room Air 10/26/16 04:08 97.0 50 20 120/74 98 Room Air 10/26/16 00:21 97.1 58 20 106/62 98 Room Air 10/25/16 19:49 96.2 70 20 131/63 98 Room Air I & O 10/26/16 07:00 Intake Total 4702 ml Output Total 5050 ml Balance -348 ml Capillary Refill : Less Than 3 Seconds General Appearance: No Apparent Distress, WD/WN HEENT: PERRL/EOMI Neck: Full Range of Motion Respiratory: Chest Non Tender, No Accessory Muscle Use, No Respiratory Distress Cardiovascular: Regular Rate, Rhythm Gastrointestinal: non tender, soft Extremity: Non Tender, No Calf Tenderness Neurologic/Psychiatric: Alert, Oriented x3, No Motor/Sensory Deficits Skin: Normal Color, Other (penile/scrotal wound minimal induration, wound clean, no purulent material or necrotic tissue) Results Lab Laboratory Tests 10/26/16 08:25: White Blood Count 7.8, Red Blood Count 4.14L, Hemoglobin 12.4L, Hematocrit 37L, Mean Corpuscular Volume 89, Mean Corpuscular Hemoglobin 30, Mean Corpuscular Hemoglobin Concent 34, Red Cell Distribution Width 11.4, Platelet Count 262, Mean Platelet Volume 9.0 Microbiology 10/23/16 Blood Culture - Preliminary, Resulted No growth 10/23/16 Gram Stain - Final, Resulted 10/23/16 Wound Culture - Preliminary, Resulted Staphylococcus Aureus Assessment/Plan Assessment/Plan Assessment/Plan SP I&D to base penis/scrotum Abscess secondary to folliculitis- Cellulitis MRSA wbc improved no fever patient instructed on wound care wants to go home which I believe is acceptable Home on antibiotics Daily wound care If any change at all he was informed to be re-evaluated at that time. Patient agrees with plan. Clinical Quality Measures DVT/VTE Risk/Contraindication: Risk Factor Score Per Nursin RFS Level Per Nursing on Admit: 1=Low/No VTE PPX WINNIE FLAHERTY DO October 26, 2016 16:13
--- NOTE | 2016-10-27 09:16 | Discharge Summary ---
Diagnosis/Chief Complaint Date of Admission October 23, 2016 at 05:30 Date of Discharge October 26, 2016 at 14:20 Discharge Date: October 26, 2016 Discharge Diagnosis SP I&D to Pubic area. Abscess secondary to folliculitis- Cellulitis MRSA Reason Hospital Visit Patient reports that about 3 days ago, he noticed a cyst to his pubic area, above his penis.Patient has reportedly shaved his pubic hair a few days prior to noticing the cyst. Patient reports that he tried to pop it but there was no drainage. Patient states that over the next 2 days, that became red, inflamed and started hurting. He also reports that the redness going into his left groin. Patient states that it was getting worse and he decided to come to the ER. The ED physician tried to I&D the cyst but with minimal result. Patient was admitted for Antibiotics and further evaluation. Discharge Summary Procedures: NAME:MARV SINGH [facility] REC#:[id number] :1995 LOCATION:4TH ADMIT DATE:10/23/16 DATE OF SERVICE: 10/23/2016 PREOPERATIVE DIAGNOSIS: Abscess, base of the penis and left scrotum. POSTOPERATIVE DIAGNOSIS: Abscess, base of the penis and left scrotum. PROCEDURES: Incision and drainage of abscess, base of penis, on the left side of the scrotum. SURGEON: Jc Jimenez MD ANESTHESIA: 3 mL of 1% lidocaine. ESTIMATED BLOOD LOSS: Minimal. COMPLICATIONS: None. INDICATIONS: The patient is a 21-year-old male with an abscess to the base of his penis and life side of the scrotum. He had previous incision and drainage with a small opening, but still has further fluctuance and felt to need further incision and drainage. He understands the risks and benefits of procedures and wished to proceed with procedure. Consent was signed and in the chart. PROCEDURE: The patient was prepped and draped in sterile fashion. Timeout was performed. Local anesthetic was infiltrated into the area. Using 11 blade scalpel the incision was made over the area of fluctuance. Purulent material erupted in a small amount. There is still a lot of indurated area present. The wound was then irrigated with copious amounts of irrigation. It was then packed with 0.25 inch iodoform gauze. The area was then washed and dried, sterile bandage was applied. The patient tolerated the procedure well without any complications. After incision was made, culture was obtained. The patient was instructed that he may need further incision if it continues to worsen or even further debridement. He understands. The patient continue on antibiotics. Discharge Physical Examination Allergies: Coded Allergies: No Known Drug Allergies (Unverified , 10/23/16) Vitals & I&Os Vital Signs Date Time Temp Pulse Resp B/P (MAP) Pulse Ox O2 Delivery O2 Flow Rate FiO2 10/26/16 08:28 98.0 55 18 112/70 97 Room Air General Appearance: Alert, Oriented X3, Cooperative HEENT: Atraumatic Cardiovascular: Regular Rate Abdominal: Normal Bowel Sounds, Soft, No Tenderness Extremities: No Edema Neuro: Normal Speech Psych/Mental Status: Mental Status NL Hospital Course Patient reports that about 3 days ago, he noticed a cyst to his pubic area, above his penis.Patient has reportedly shaved his pubic hair a few days prior to noticing the cyst. Patient reports that he tried to pop it but there was no drainage. Patient states that over the next 2 days, that became red, inflamed and started hurting. He also reports that the redness going into his left groin. Patient states that it was getting worse and he decided to come to the ER. The ED physician tried to I&D the cyst but with minimal result. Patient was admitted for Antibiotics and further evaluation. The following day, the patient still had further fluctuance and Dr. Jimenez felt he needed to do further incision and drainage. Dr. Jimenez explained the risks and benefits of procedures and the patient wished to proceed with procedure. Consent was signed and in the chart. The patient tolerated procedure well. Culture was sent to the lab and Micro came out as MRSA. Patient was receiving Vancomycin while in hospital. Two days later, I& D was repeated due to more fluctuance. Dr. Jimenez explained the risks and benefits of procedures and the patient wished to proceed with procedure. Consent was signed and in the chart. Procedure was Well tolerated by patient. He was discharged on the 26 of October and instructed to pack wound with Iodoform, and dressing. Patient was also prescribed Bactrim DS BID x 10 days and some pain medication. Patient to follow up with Dr. Jimneez in 1 week. Discharge Instructions to patient/family Please see [employer] discharge instructions given to patient. Discharge Medications Reviewed and agree with Discharge Medication list on patient's Discharge Instruction sheet Clinical Quality Measures DVT/VTE Risk/Contraindication: Risk Factor Score Per Nursin RFS Level Per Nursing on Admit: 1=Low/No VTE PPX JESSEE JESUS APRN October 27, 2016 09:16
== END 2016-10-26 14:20 | disposition home or self-care (01) | DRG 607 ==
LOC: ER 01:56 → 4TH 05:30
PROVIDERS: ADMIT Surgery; ATTEND Surgery
PROC: 0V95XZZ Drainage of Scrotum, External Approach (ICD-10-PCS; principal; 2016-10-23)
PROC: 0V95XZZ Drainage of Scrotum, External Approach (ICD-10-PCS; 2016-10-25)
DX: L73.9 Follicular disorder, unspecified (principal); N48.22 Cellulitis of corpus cavernosum and penis; B95.62 Methicillin resistant Staphylococcus aureus infection as the cause of diseases classified elsewhere
CPT/HCPCS: 10060; 36415; 72193; 80053; 80202; 83605; 85025; 85027; 86141; 87040; 87070; 87077; 87186; 87205; 96374; 96375